=== PATIENT | female | born 1960 | race Caucasian/White ===

== ENCOUNTER 2018-08-19 08:00 | Outpatient (CLI) | payer MEDICARE ==
[2013-12-26 17:21] VITALS: BMI 31.5
[~2018-08-19 08:00] MED LIST: ACETAMINOPHEN325 MG NG; ACETAMINOPHEN500 M1 PO; ASPIRIN325 MG PO; BAYER CHEWABLE81 MG PO; CLEOCIN HCL300 MG PO; CORDARONE200 MG PO; COREG 3.1253.125 MG GT; COREG 3.1253.125 MG PO; HYDROCODON-ACE1 EAC7 PO; IPRAT-ALBUT 0.5-3 ML UPD; LISINOPRIL5 MG PO; MUCINEX600 MG PO; NICODERM C1 PATCH .3; ONDANSETRON4 MG/2 M3 IV; PHENERGAN25 MG/ML IV; PLAVIX75 MG PO; PRAVACHOL20 MG PO; PRAVACHOL40 MG PO; SYNTHROID50 MCG PO; VANCOMYCIN1 GM/2501 IV; VISTARIL50 MG PO
== END 2018-08-19 09:00 | disposition home or self-care (01) ==
LOC: D.MAMMO 08:00
PROVIDERS: ATTEND Nurse Practitioner Family
DX: Z12.31 Encounter for screening mammogram for malignant neoplasm of breast (principal)

== ENCOUNTER → 2020-07-30 06:45 | Day surgery (SDC) | payer MEDICARE, MEDICAID ==
[2020-07-27 12:11] LABS: CALC OSMOLALITY 277 mosm/kg (275-300); CALCIUM 8.6 mg/dL (8.5-10.1); CARBON DIOXIDE 24.8 mmol/L (21.0-32.0); CHLORIDE - SERUM 105 mmol/L (98-107); CREATININE - SERUM 0.6 mg/dL (0.6-1.3); GLUCOSE 117 mg/dL (74-106); POTASSIUM - SERUM 3.8 mmol/L (3.5-5.1); SODIUM 138 mmol/L (136-145); UREA NITROGEN 14 mg/dL (7-18); eGFR NON AFRICAN AMERICAN > 90 mL/min (90-120)
[2020-07-27 12:19] LABS: BASOPHILS 0.3 % (0-2); EOSINOPHILS 4.4 % (0-7); HEMATOCRIT 44.3 % (36.0-48.0); HEMOGLOBIN 14.6 g/dL (12-16); IMMATURE GRANULOCYTES 0.2 % (0-5); LYMPHOCYTE ABS# 2.63 10x3/uL (1.18-3.74); MCH 28.3 pg (26.0-34.0); MCV 85.9 fL (80.0-100.0); MEAN PLATELET VOLUME 10.8 fL (7.4-10.4); MONOCYTES 6.1 % (2-11); NEUTROPHIL ABS# 2.46 10x3/uL (1.56-6.13); RBC 5.16 10x6/uL (4.00-5.40); RDW 13.6 % (11.5-14.5); WBC 5.7 10x3/uL (4.8-10.8)
[2020-07-27 12:28] LABS: PLATELET COUNT 248 10x3/uL (130-400)
[~2020-07-30] VITALS: Ht 165.1 cm; Wt 79.4 kg
--- NOTE | ~2020-07-30 | OP ---
PATIENT NAME: SOLA BANKS MEDICAL RECORD: [id number] :64 LOCATION:D.OPS ADMISSION DATE: SURGEON: SINDY URBANO MD DATE OF OPERATION: 07/30/2020 PREOPERATIVE DIAGNOSES: 1. Pelvic pain. 2. Pelvic adhesions. POSTOPERATIVE DIAGNOSES: 1. Pelvic pain. 2. Pelvic adhesions. 3. Densely adherent right ovary to right pelvic sidewall. PROCEDURE: Diagnostic laparoscopy and lysis of adhesions. SURGEON: Sindy Urbano MD ESTIMATED BLOOD LOSS: Minimal. ANESTHESIA: General endotracheal. IV FLUID: Per anesthesia record. COMPLICATIONS: None apparent. FINDINGS: 1. Grossly normal-appearing uterus. 2. Absent left ovary and fallopian tube. 3. Grossly normal appearing right fallopian tube. 4. Right ovary densely adherent approximately 50% of the surface adhered to the right pelvic sidewall. DESCRIPTION OF THE PROCEDURE: The patient was taken to the operating room where general anesthesia was achieved without difficulty. The patient was prepped and draped in normal sterile fashion in the dorsal lithotomy position in the [facility]. A Wood catheter was placed and a single tooth tenaculum was placed on the anterior lip of the cervix. An acorn uterine manipulator was then placed for uterine manipulation. The patient was draped and then a 5-mm incision was made infraumbilically. The 5-mm bladeless trocar was used to enter the intraperitoneal space under direct visualization of the laparoscope. Opening pressure was found to be less than 7 mmHg and insufflation was started. The introducer was removed and the camera was replaced. Intraperitoneal placement was confirmed by direct visualization. Attention was then turned to the left lower quadrant where a 5-mm incision was made after transillumination of the skin and a second 5-mm trocar was placed under direct visualization of the laparoscope. Survey of the abdomen and pelvis was performed. The right ovary was very densely adherent to the right pelvic sidewall immediately over the ureter and iliac vasculature. The round ligament on the right was identified and desiccated using the Thunderbeat bipolar cautery. The round ligament was then transected and dissection of the posterior leaf of the broad ligament was performed; however, isolation of the ovarian vasculature could not be performed separate of the underlying structures. It was felt at this time that laparoscopic removal of the ovary was high risk for damage to the ureter or iliac vasculature. An decision was made to not proceed with right oophorectomy. OPERATIVE REPORT [id number] SOLA BANKS Survey of the abdomen and pelvis was completed. The patient was desufflated and all surgical sites were found to be hemostatic. The trocars were then removed after desufflation and the incisions were repaired with 3-0 Vicryl in an interrupted fashion. The tenaculum and uterine manipulator were removed as well as a Wood catheter. The patient was transferred to the anesthesia recovery stable without incident. TRANSINT:[id number] Voice Confirmation ID: [id number] DOCUMENT ID: [id number] SINDY URBANO MD CC: [id number] DICTATION DATE: 08/09/20 0550 REPAIR TABLE OPERATOR: 08/09/20 0811 [facility] 07/30/[address] [id number]
[~2020-07-30 06:45] MED LIST changes: +BUSPAR10 MG PO; +CELEXA40 MG PO; +GABAPENTIN100 MG PO; +GLUCOPHAGE1000 MG PO; +JARDIANCE25 MG PO; +NITROQUICK0.4 MG SL; +PROTONIX40 MG PO; +TYLENOL W/CODEI1 TAB PO; +ZANAFLEX4 MG PO
[2020-07-30 08:57] VITALS: BP 142/71; Ht 165.1 cm; Wt 79.4 kg
--- NOTE | 2020-07-30 14:09 | NUR ---
PT STATES SHE TAKES TYLENOL 3 FOR PRE-EXISTING BACK AND NECK PAIN
--- NOTE | 2020-07-30 16:44 | NUR ---
1520 IV DC'D. CATHETER TIP INTACT. NO BLEEDING AT SITE AFTER HOLDING PRESSURE. BANDAID APPLIED. 1533 PT READY FOR DISCHARGE. PT VOICES UNDERSTANDING OF DISCHARGE INSTRUCTIONS THAT WAS REVIEWED WITH HER. PT IS IN POSSESSION OF HER DISCHARGE PACKET.
== END | disposition home or self-care (01) ==
LOC: D.OPS 06:45
PROVIDERS: Anesthesiology; ATTEND Obstetrics & Gynecology
DX: R10.2 Pelvic and perineal pain (principal); B19.20 Unspecified viral hepatitis C without hepatic coma; I10 Essential (primary) hypertension; E11.9 Type 2 diabetes mellitus without complications; F32.9 Major depressive disorder, single episode, unspecified; Z72.0 Tobacco use; Z79.84 Long term (current) use of oral hypoglycemic drugs